=== PATIENT | female | born 1975 | race Caucasian/White ===

== ENCOUNTER 2016-11-06 13:21 | Emergency (ER) | payer SELFPAY ==
[2016-11-06 13:40] VITALS: BP 158/110
[2016-11-06] MEDS ORDERED: OXYCODONE-ACETAMINOPHEN 5-325 MG TABLET PO ONE (13:41)
[2016-11-06] MEDS ORDERED: ONDANSETRON 4 MG TAB.RAPDIS PO ONE (13:41)
--- NOTE | 2016-11-06 13:42 | ER Document Report ---
ED Medical Screen (RME) - General Stated Complaint: FLANK PAIN Time seen by provider: 13:38 Notes: Patient complains of left flank pain that radiates around to abdomen. Patient patient has a history of kidney stones. Has vomited 6 times. Symptoms started yesterday. I have greeted and performed a rapid initial assessment of this patient. A comprehensive ED assessment and evaluation of the patient, analysis of test results and completion of the medical decision making process will be conducted by additional ED providers. TRAVEL OUTSIDE OF THE [place] IN LAST 30 DAYS: No - Related Data Allergies/Adverse Reactions: Penicillins Allergy (Severe, Verified 11/06/16 13:36) Anaphylaxis tramadol [Tramadol] Allergy (Verified 11/06/16 13:36) Past Medical History - Past Medical History Cardiac Medical History: Reports: Hx Hypertension Denies: Hx Coronary Artery Disease, Hx Heart Attack Pulmonary Medical History: Reports: Hx Bronchitis Denies: Hx Asthma, Hx COPD, Hx Pneumonia Neurological Medical History: Denies: Hx Cerebrovascular Accident, Hx Seizures Renal/ Medical History: Reports: Hx Kidney Stones Musculoskeltal Medical History: Denies Hx Arthritis Past Surgical History: Reports: Hx Cholecystectomy, Hx Hysterectomy, Hx Mastectomy - partial hysterectomy, Hx Orthopedic Surgery - TMJ - Immunizations Immunizations up to date: Yes Hx Diphtheria, Pertussis, Tetanus Vaccination: Yes
[2016-11-06 14:07] LABS: APPEARANCE,URINE CLEAR; BILIRUBIN,URINE NEGATIVE (NEGATIVE); GLUCOSE, URINE NEGATIVE (NEGATIVE); KETONES,URINE NEGATIVE (NEGATIVE); LEUKOCYTE ESTERASE,URINE NEGATIVE (NEGATIVE); NITRITE,URINE NEGATIVE (NEGATIVE); PROTEIN,URINE NEGATIVE (NEGATIVE); UROBILINOGEN,URINE NEGATIVE mg/dL (<2.0)
--- NOTE | 2016-11-06 14:48 | ER Document Report ---
ED GI/ - General Chief Complaint: Flank Pain Stated Complaint: FLANK PAIN Notes: 41 yo female with hx/o HTN and kidney stones presents with left flank pain radiating to LLQ. pain started acutely last pm. feels familar to stones. + hematuria. + n/v. no fever TRAVEL OUTSIDE OF THE [place] IN LAST 30 DAYS: No - HPI Patient complains to provider of: Flank pain Onset: Yesterday Timing/Duration: Sudden Quality of pain: Sharp Pain Level: 4 Location: LLQ, Left flank Adult Front & Back Diagram: 1 - pain 2 - pain Associated symptoms: Hematuria, Nausea, Vomiting Exacerbated by: Denies Relieved by: Denies - Related Data Allergies/Adverse Reactions: Penicillins Allergy (Severe, Verified 11/06/16 13:36) Anaphylaxis tramadol [Tramadol] Allergy (Verified 11/06/16 13:36) Past Medical History - General Information source: Patient - Social History Smoking Status: Current Every Day Smoker Chew tobacco use (# tins/day): No Frequency of alcohol use: None Drug Abuse: None Lives with: Family Family History: Reviewed & Not Pertinent Patient has suicidal ideation: No Patient has homicidal ideation: No - Past Medical History Cardiac Medical History: Reports: Hx Hypertension Denies: Hx Coronary Artery Disease, Hx Heart Attack Pulmonary Medical History: Reports: Hx Bronchitis Denies: Hx Asthma, Hx COPD, Hx Pneumonia Neurological Medical History: Denies: Hx Cerebrovascular Accident, Hx Seizures Renal/ Medical History: Reports: Hx Kidney Stones. Denies: Hx Peritoneal Dialysis Musculoskeltal Medical History: Denies Hx Arthritis Past Surgical History: Reports: Hx Cholecystectomy, Hx Hysterectomy, Hx Mastectomy - partial hysterectomy, Hx Orthopedic Surgery - TMJ - Immunizations Immunizations up to date: Yes Hx Diphtheria, Pertussis, Tetanus Vaccination: Yes Hx Pneumococcal Vaccination: 10/04/14 Review of Systems - Review of Systems Constitutional: No symptoms reported EENT: No symptoms reported Cardiovascular: No symptoms reported Respiratory: No symptoms reported Gastrointestinal: See HPI Genitourinary: No symptoms reported Female Genitourinary: No symptoms reported Musculoskeletal: No symptoms reported Skin: No symptoms reported Hematologic/Lymphatic: No symptoms reported Neurological/Psychological: No symptoms reported -: Yes All other systems reviewed and negative Physical Exam - Vital signs Vitals: Temp Pulse Resp BP Pulse Ox 98.0 F 101 H 16 158/110 H 97 11/06/16 13:37 11/06/16 13:37 11/06/16 13:37 11/06/16 13:37 11/06/16 13:37 Interpretation: Hypertensive - General General appearance: Appears well, Alert In distress: Mild - HEENT Head: Normocephalic, Atraumatic Eyes: Normal Pupils: PERRL - Respiratory Respiratory status: No respiratory distress Chest status: Nontender Breath sounds: Normal Chest palpation: Normal - Cardiovascular Rhythm: Regular Heart sounds: Normal auscultation Murmur: No - Abdominal Inspection: Normal Distension: No distension Bowel sounds: Normal Tenderness: Tender - LLQ Organomegaly: No organomegaly - Back Back: Normal, CVA tenderness - left - Extremities General upper extremity: Normal inspection, Nontender, Normal color, Normal ROM , Normal temperature General lower extremity: Normal inspection, Nontender, Normal color, Normal ROM , Normal temperature, Normal weight bearing. No: Yoel's sign - Neurological Neuro grossly intact: Yes Cognition: Normal Orientation: AAOx4 [place] Coma Scale Eye Opening: Spontaneous [place] Coma Scale Verbal: Oriented [place] Coma Scale Motor: Obeys Commands Diane Coma Scale Total: 15 Speech: Normal Motor strength normal: LUE, RUE, LLE, RLE Sensory: Normal - Psychological Associated symptoms: Normal affect, Normal mood - Skin Skin Temperature: Warm Skin Moisture: Dry Skin Color: Normal Course - Re-evaluation Re-evalutation: 11/06/16 14:50 H&P c/w kidney stone. pt reports symptoms are c/w with her last stone which was about 6 mos ago. Pt has been able to pass all previous stones. Pt declines IVF and CT scan at this time. 11/06/16 14:55 blood pressure noted to be elevated. pt reports vomiting shortly after taking meds this morning. 11/06/16 14:59 low suspicion for bowel obstruction, ruptured diverticulitis, incarcerated hernia, ectopic . kidney stone most likely. pt does not want CT or IVF today. Home care, F/U with PCM, ED return precaution discussed with patient who verbalizedmunderstanding and agrees with plan. - Vital Signs Vital signs: Temp Pulse Resp BP Pulse Ox 98.0 F 101 H 16 158/110 H 97 11/06/16 13:37 11/06/16 13:37 11/06/16 13:37 11/06/16 13:37 11/06/16 13:37 - Laboratory Laboratory results interpreted by me: 11/06/16 13:50 Urine Blood MODERATE H Discharge - Discharge Clinical Impression: Flank pain Condition: Stable Disposition: HOME, SELF-CARE Instructions: Flank Pain ([facility]), Oral Narcotic Medication ([facility]), Antinausea Medication ([facility]) Additional Instructions: Your exam is consistent with a kidney stone Take meds as prescribed push fluids Return to ER for any worsening Your blood pressure was noted to by high today This may be due to the pain you are currently in and not being able to tolerate your meds Please keep a blood pressure diary and follow up with your primary care for further evaluation Prescriptions: Ondansetron HCl [Zofran 8 mg Tablet] 8 mg PO Q8HP PRN #20 tablet PRN Reason: Oxycodone HCl/Acetaminophen [Percocet 5-325 mg Tablet] 1 - 2 tab PO ASDIR PRN # 25 tablet PRN Reason: Tamsulosin HCl [Flomax] 0.4 mg PO DAILY #7 cap.er.24h
== END 2016-11-06 15:00 | disposition home or self-care (01) ==
LOC: ER 13:21
DX: R10.9 Unspecified abdominal pain (principal); R10.814 Left lower quadrant abdominal tenderness; I10 Essential (primary) hypertension; R31.9 Hematuria, unspecified; R11.2 Nausea with vomiting, unspecified; F17.200 Nicotine dependence, unspecified, uncomplicated; Z88.5 Allergy status to narcotic agent; Z87.442 Personal history of urinary calculi; Z87.892 Personal history of anaphylaxis; Z88.0 Allergy status to penicillin; Z90.49 Acquired absence of other specified parts of digestive tract; Z90.710 Acquired absence of both cervix and uterus
CPT/HCPCS: 99284; 81001; S0119

== ENCOUNTER 2016-11-14 16:50 | Emergency (ER) | payer SELFPAY ==
--- NOTE | 2016-11-14 17:20 | ER Document Report ---
ED Medical Screen (RME) - General Stated Complaint: FALL/ANKLE, KNEE AND HEAD INJURY Time seen by provider: 17:18 Mode of Arrival: Ambulatory Information source: Patient Notes: 41-year-old female slipped on her back steps injuring left ankle, left knee, right shoulder, and bumped her left forehead. No loss of consciousness. No vomiting.. No neck pain, Slight headache, does not want head, left knee, or right shoulder imaged she does not think they are broken. Tetanus 6 years ago. I have greeted and performed a rapid initial assessment of this patient. A comprehensive ED assessment, evaluation of the patient, analysis of test results , and completion of the medical decision making process will be contacted by additional ED providers. TRAVEL OUTSIDE OF THE [place] IN LAST 30 DAYS: No - Related Data Allergies/Adverse Reactions: Penicillins Allergy (Severe, Verified 11/06/16 13:36) Anaphylaxis tramadol [Tramadol] Allergy (Verified 11/06/16 13:36) Past Medical History - Past Medical History Cardiac Medical History: Reports: Hx Hypertension Denies: Hx Coronary Artery Disease, Hx Heart Attack Pulmonary Medical History: Reports: Hx Bronchitis Denies: Hx Asthma, Hx COPD, Hx Pneumonia Neurological Medical History: Denies: Hx Cerebrovascular Accident, Hx Seizures Renal/ Medical History: Reports: Hx Kidney Stones. Denies: Hx Peritoneal Dialysis Musculoskeltal Medical History: Denies Hx Arthritis Past Surgical History: Reports: Hx Cholecystectomy, Hx Hysterectomy, Hx Mastectomy - partial hysterectomy, Hx Orthopedic Surgery - TMJ - Immunizations Immunizations up to date: Yes Hx Diphtheria, Pertussis, Tetanus Vaccination: Yes Physical Exam - Vital signs Vitals: Temp Pulse Resp BP Pulse Ox 98.4 F 117 H 16 143/88 H 96 11/14/16 17:09 11/14/16 17:09 11/14/16 17:09 11/14/16 17:09 11/14/16 17:09 Course - Vital Signs Vital signs: Temp Pulse Resp BP Pulse Ox 98.4 F 117 H 16 143/88 H 96 11/14/16 17:09 11/14/16 17:09 11/14/16 17:09 11/14/16 17:09 11/14/16 17:09
[2016-11-14] MEDS ORDERED: OXYCODONE-ACETAMINOPHEN 5-325 MG TABLET PO ONE ×2 (17:26→22:49)
[2016-11-14] MEDS ORDERED: ONDANSETRON 4 MG TAB.RAPDIS PO ONE (17:26)
--- NOTE | 2016-11-14 22:48 | ER Document Report ---
ED Fall - General Mode of Arrival: Ambulatory Information source: Patient TRAVEL OUTSIDE OF THE [place] IN LAST 30 DAYS: No - HPI Patient complains to provider of: left ankle pain Associated symptoms: Other - See above <VAISHALI ARCEO - Last Filed: 11/14/16 23:45> <MARY VALERIO - Last Filed: 11/15/16 06:01> - General Chief Complaint: Fall Injury Stated Complaint: FALL/ANKLE, KNEE AND HEAD INJURY Notes: Patient is a 41 year old female, with a past medical history including hypertension, who presents to the emergency department complaining of left ankle pain secondary to a fall this afternoon. Patient reports that she was walking down her porch steps and slipped falling into her yard. Patient also complains of pain in her left knee and right shoulder. Patient states that she can move her left toes normally. Patient denies hitting her head and losing consciousness. (VAISHALI ARCEO) - Related data Allergies/Adverse Reactions: Penicillins Allergy (Severe, Verified 11/06/16 13:36) Anaphylaxis tramadol [Tramadol] Allergy (Verified 11/06/16 13:36) Past Medical History - General Information source: Patient - Social History Smoking Status: Unknown if Ever Smoked Family History: Reviewed & Not Pertinent Patient has suicidal ideation: No Patient has homicidal ideation: No - Past Medical History Cardiac Medical History: Reports: Hx Hypertension Pulmonary Medical History: Reports: Hx Bronchitis Renal/ Medical History: Reports: Hx Kidney Stones Past Surgical History: Reports: Hx Cholecystectomy, Hx Hysterectomy, Hx Mastectomy - partial hysterectomy, Hx Orthopedic Surgery - TMJ - Immunizations Immunizations up to date: Yes Hx Diphtheria, Pertussis, Tetanus Vaccination: Yes Hx Pneumococcal Vaccination: 10/04/14 <VAISHALI ARCEO - Last Filed: 11/14/16 23:45> Review of Systems - Review of Systems Constitutional: No symptoms reported EENT: No symptoms reported Cardiovascular: No symptoms reported Respiratory: No symptoms reported Gastrointestinal: No symptoms reported Genitourinary: No symptoms reported Female Genitourinary: No symptoms reported Musculoskeletal: See HPI, Joint pain - left ankle, knee, and right shoulder Skin: No symptoms reported Hematologic/Lymphatic: No symptoms reported Neurological/Psychological: denies: Lost consciousness -: Yes All other systems reviewed and negative <VAISHALI ARCEO - Last Filed: 11/14/16 23:45> Physical Exam - Vital signs Interpretation: Normal - General General appearance: Appears well, Alert - HEENT Head: Normocephalic, Atraumatic - Respiratory Respiratory status: No respiratory distress Chest status: Nontender Breath sounds: Normal Chest palpation: Normal - Cardiovascular Rhythm: Regular Heart sounds: Normal auscultation Murmur: No - Abdominal Inspection: Normal Distension: No distension Bowel sounds: Normal Tenderness: Nontender Organomegaly: No organomegaly - Back Back: Normal, Nontender - Extremities General lower extremity: Tender - Contusion to left knee and left proximal tibia laterally with tenderness to palption of the inferior to lateral malleolus of the left leg Shoulder: Tender - Right supraspinatus over the AC joint is tender to palpation - Neurological Neuro grossly intact: Yes Cognition: Normal Orientation: AAOx4 [place] Coma Scale Eye Opening: Spontaneous Diane Coma Scale Verbal: Oriented [place] Coma Scale Motor: Obeys Commands [place] Coma Scale Total: 15 Speech: Normal Motor strength normal: LUE, RUE, LLE, RLE Sensory: Normal - Psychological Associated symptoms: Normal affect, Normal mood - Skin Skin Temperature: Warm Skin Moisture: Dry Skin Color: Normal <VAISHALI ARCEO - Last Filed: 11/14/16 23:45> Course <VAISHALI ARCEO - Last Filed: 11/14/16 23:45> - Diagnostic Test Radiology reviewed: Reports reviewed <MARY VALERIO - Last Filed: 11/15/16 06:01> - Re-evaluation Re-evalutation: 11/15/16 Patient with no acute finding on x-ray. No loss of consciousness. Patient is able to ambulate. Patient will be discharged home with Jose wrap and ankle stirrup. Stable for discharge. Return if any worsening or concerning symptoms. (MARY VALERIO) - Vital Signs Vital signs: Temp Pulse Resp BP Pulse Ox 97.9 F 90 18 136/90 H 96 11/14/16 23:06 11/14/16 23:06 11/14/16 23:06 11/14/16 23:06 11/14/16 23:06 (VAISHALI ARCEO) (MARY VALERIO) Procedures - Immobilization Left Ankle Pre-Proc Neuro Vasc Exam: Normal Immobilizer type: Ankle stirrup Performed by: PCT Post-Proc Neuro Vasc Exam: Normal Alignment checked and good: Yes <MARY VALERIO - Last Filed: 11/15/16 06:01> Discharge <VAISHALI ARCEO - Last Filed: 11/14/16 23:45> <MARY VALERIO - Last Filed: 11/15/16 06:01> - Discharge Clinical Impression: Knee contusion Qualifiers: Encounter type: initial encounter Laterality: left Qualified Code(s): S80.02XA - Contusion of left knee, initial encounter Rotator cuff injury Qualifiers: Encounter type: initial encounter Laterality: right Qualified Code(s): S46.001A - Unspecified injury of muscle(s) and tendon(s) of the rotator cuff of right shoulder, initial encounter Ankle sprain Qualifiers: Encounter type: initial encounter Involved ligament of ankle: other ligament Laterality: left Qualified Code(s): S93.492A - Sprain of other ligament of left ankle, initial encounter Condition: Stable Disposition: HOME, SELF-CARE Instructions: Sprained Ankle ([facility]), Oral Narcotic Medication ([facility]), Ice Packs ( [facility]), Splint Precautions ([facility]), Contusion ([facility]) Prescriptions: Oxycodone HCl/Acetaminophen [Percocet 5-325 mg Tablet] 1 - 2 tab PO Q4H PRN #20 tablet PRN Reason: Forms: Return to Work Scribe Attestation: 11/15/16 06:01 I personally performed the services described in the documentation, reviewed and edited the documentation which was dictated to the scribe in my presence, and it accurately records my words and actions. (MARY VALERIO) Scribe Documentation - Scribe Written by Yeseniaibbertha:: dorian Bae, 11/14/16, [id number] acting as scribe for :: Gab <VAISHALI ARCEO - Last Filed: 11/14/16 23:45>
[2016-11-14] MEDS ORDERED: ONDANSETRON ODT 4 MG TAB (6 TAB/DSPK) PO PRN (22:50)
[2016-11-14] MEDS ORDERED: HYDROCODONE/ACETAMINOPHEN 5-325 MG 6 TAB/DSPK PO PRN (22:50)
[2016-11-14 23:13] VITALS: BP 136/90
== END 2016-11-14 23:08 | disposition home or self-care (01) ==
LOC: ER 16:50
PROC: 2W3TX1Z Immobilization of Left Foot using Splint (ICD-10-PCS; principal; 2016-11-14)
DX: S80.02XA Contusion of left knee, initial encounter (principal); S93.492A Sprain of other ligament of left ankle, initial encounter; S46.001A Unspecified injury of muscle(s) and tendon(s) of the rotator cuff of right shoulder, initial encounter; M25.562 Pain in left knee; M25.511 Pain in right shoulder; W19.XXXA Unspecified fall, initial encounter
CPT/HCPCS: 99284; 73610; 73630; 29515; L1902; S0119

== ENCOUNTER 2016-12-22 12:08 | Emergency (ER) | payer SELFPAY ==
--- NOTE | 2016-12-22 12:24 | ER Document Report ---
ED Medical Screen (RME) - General Stated Complaint: URINARY PROBLEM Notes: 41 yo dysuria, hematuria since yesterday. + left flank pain. + hx/o kidney stone and UTI. + nausea, vomited x 1 last PM TRAVEL OUTSIDE OF THE [place] IN LAST 30 DAYS: No - Related Data Allergies/Adverse Reactions: Penicillins Allergy (Severe, Verified 11/06/16 13:36) Anaphylaxis tramadol [Tramadol] Allergy (Verified 11/06/16 13:36) Past Medical History - Past Medical History Cardiac Medical History: Reports: Hx Hypertension Denies: Hx Coronary Artery Disease, Hx Heart Attack Pulmonary Medical History: Reports: Hx Bronchitis Denies: Hx Asthma, Hx COPD, Hx Pneumonia Neurological Medical History: Denies: Hx Cerebrovascular Accident, Hx Seizures Renal/ Medical History: Reports: Hx Kidney Stones. Denies: Hx Peritoneal Dialysis Musculoskeltal Medical History: Denies Hx Arthritis Past Surgical History: Reports: Hx Cholecystectomy, Hx Hysterectomy, Hx Mastectomy - partial hysterectomy, Hx Orthopedic Surgery - TMJ - Immunizations Immunizations up to date: Yes Hx Diphtheria, Pertussis, Tetanus Vaccination: Yes
[2016-12-22 12:26] VITALS: BP 170/96
[2016-12-22 12:58] LABS: APPEARANCE,URINE CLEAR; BILIRUBIN,URINE NEGATIVE (NEGATIVE); GLUCOSE, URINE NEGATIVE (NEGATIVE); KETONES,URINE NEGATIVE (NEGATIVE); LEUKOCYTE ESTERASE,URINE NEGATIVE (NEGATIVE); NITRITE,URINE NEGATIVE (NEGATIVE); PROTEIN,URINE NEGATIVE (NEGATIVE); URINE SPECIFIC GRAVITY 1.004; UROBILINOGEN,URINE NEGATIVE mg/dL (<2.0)
--- NOTE | 2016-12-22 13:56 | ER Document Report ---
HPI - HPI Patient complains to provider of: left flank pain that radiates to her left lower quadrant Onset/Duration: Gradual, Waxing and waning Quality of pain: Achy, Stabbing Pain Level: 4 Context: 41-year-old female complaining of left flank pain which radiates to left lower quadrant it is intermittent and persistent since yesterday at 9:00. She is wondering if it is a kidney stone because she has urinary hesitancy. She has no vaginal discharge or odor. No dysuria. No fever or chills. She's had an ovarian cyst in the past, hysterectomy. Associated Symptoms: None Exacerbated by: Denies Relieved by: Denies Similar symptoms previously: Yes Recently seen / treated by doctor: No - ROS ROS below otherwise negative: Yes Systems Reviewed and Negative: Yes All other systems reviewed and negative - REPRODUCTIVE LMP: hyst Reproductive: DENIES: : - DERM Skin Color: Normal Past Medical History - General Information source: Patient - Social History Smoking Status: Current Every Day Smoker Frequency of alcohol use: None Drug Abuse: None Lives with: Family Family History: Reviewed & Not Pertinent Patient has suicidal ideation: No Patient has homicidal ideation: No - Past Medical History Cardiac Medical History: Reports: Hx Hypertension Pulmonary Medical History: Reports: Hx Bronchitis Renal/ Medical History: Reports: Hx Kidney Stones. Denies: Hx Peritoneal Dialysis Past Surgical History: Reports: Hx Cholecystectomy, Hx Hysterectomy, Hx Orthopedic Surgery - TMJ - Immunizations Immunizations up to date: Yes Hx Diphtheria, Pertussis, Tetanus Vaccination: Yes Hx Pneumococcal Vaccination: 10/04/14 Vertical Provider Document - CONSTITUTIONAL Agree With Documented VS: Yes - INFECTION CONTROL TRAVEL OUTSIDE OF THE [place] IN LAST 30 DAYS: No - HEENT HEENT: Normal ENT Exam, Normocephalic - NECK Neck: Supple. negative: Lymphadenopathy-Right - RESPIRATORY Respiratory: Breath Sounds Normal, No Respiratory Distress O2 Sat by Pulse Oximetry: 99 - CARDIOVASCULAR Cardiovascular: Regular Rate, Regular Rhythm - GI/ABDOMEN Gastrointestinal: Abdomen Soft, Abdomen Non-Tender, No Organomegaly. negative: Abdomen Tender, Abdominal Guarding - BACK Back: Normal Inspection. negative: CVA Tenderness-Right, CVA Tenderness-Left - MUSCULOSKELETAL/EXTREMETIES Musculoskeletal/Extremeties: MAWAI, FROM - NEURO Level of Consciousness: Awake, Alert - DERM Integumentary: Warm, Dry, No Rash Course - Re-evaluation Re-evalutation: 12/22/16 16:36 I had to wake the patient up, the renal ultrasound shows a nonobstructing left upper pole 1 cm kidney stone. Doubt that this flank pain is due to this, urine culture is pending. Will refer to urology, return if worse - Vital Signs Vital signs: Temp Pulse Resp BP Pulse Ox 98.1 F 93 18 170/96 H 99 12/22/16 12:24 12/22/16 12:24 12/22/16 12:24 12/22/16 12:24 12/22/16 12:24 - Laboratory Laboratory results interpreted by me: 12/22/16 12:30 Urine Blood MODERATE H Discharge - Discharge Clinical Impression: non-obst Lt Kidney stone uper pole, Left flank pain Condition: Good Disposition: HOME, SELF-CARE Instructions: Kidney Stone ([facility]), Anti-Inflammatory Medication ([facility]), Acetaminophen, Antinausea Medication ([facility]) Additional Instructions: warm compress see the urulogist to er if worse urine culture is pending Please complete the patient satisfaction survey if you get one, and return it.. If you do not receive a survey, then you can go to the [facility] website, [email or web address] and place your comments about your very good care. Thank you very much. It was a pleasure being your medical provider today. Prescriptions: Promethazine HCl [Phenergan 25 mg Tablet] 25 mg PO Q4HP PRN #30 tablet PRN Reason: Ibuprofen [Motrin 800 mg Tablet] 800 mg PO Q8HP PRN #30 tablet PRN Reason: Referrals: [facility] [Provider Group] - Follow up as needed
[2016-12-22] MEDS ORDERED: IBUPROFEN 800 MG TABLET PO ONE (14:04)
[2016-12-22] MEDS ORDERED: ONDANSETRON 4 MG TAB.RAPDIS PO ONE (14:04)
== END 2016-12-22 17:20 | disposition home or self-care (01) ==
LOC: ER 12:08
DX: R10.9 Unspecified abdominal pain (principal); N20.0 Calculus of kidney; R39.11 Hesitancy of micturition; I10 Essential (primary) hypertension; F17.200 Nicotine dependence, unspecified, uncomplicated; Z90.710 Acquired absence of both cervix and uterus; Z87.42 Personal history of other diseases of the female genital tract; Z90.49 Acquired absence of other specified parts of digestive tract
CPT/HCPCS: 99284; 87086; 81001; 76770; S0119

== ENCOUNTER 2017-01-04 08:09 | Emergency (ER) | payer SELFPAY ==
--- NOTE | 2017-01-04 08:28 | ER Document Report ---
ED General - General Mode of Arrival: Ambulatory Information source: Patient TRAVEL OUTSIDE OF THE [place] IN LAST 30 DAYS: No - HPI Patient complains to provider of: Flank Pain Onset: Other - 12/22/2016 Onset/Duration: Gradual, Persistent - General Chief Complaint: Flank Pain Stated Complaint: VOMITING,LEFT SIDE FLANK PAIN Notes: Patient is a 41-year-old female presenting to the emergency department concerned of flank pain onset, 12/22/2016 when she was first seen here in the emergency department. Patient states that it has improved over the past week, but yesterday the pain returned. Patient has a follow-up appointment with the urologist on Tuesday. Patient cannot remember the name of this urologist. Patient states that she was told that she had an OBSTRUCTIVE kidney stone when she was here on the , but she did not understand that this meant she was not having pain from the kidney stone. (CIARA ESCAMILLA) - Related Data Allergies/Adverse Reactions: Penicillins Allergy (Severe, Verified 01/04/17 08:14) Anaphylaxis tramadol [Tramadol] Allergy (Verified 01/04/17 08:14) Past Medical History - General Information source: Patient - Social History Smoking Status: Unknown if Ever Smoked Family History: Reviewed & Not Pertinent Patient has suicidal ideation: No Patient has homicidal ideation: No - Past Medical History Cardiac Medical History: Reports: Hx Hypertension Denies: Hx Coronary Artery Disease, Hx Heart Attack Pulmonary Medical History: Reports: Hx Bronchitis Denies: Hx Asthma, Hx COPD, Hx Pneumonia Neurological Medical History: Denies: Hx Cerebrovascular Accident, Hx Seizures Renal/ Medical History: Reports: Hx Kidney Stones. Denies: Hx Peritoneal Dialysis Musculoskeltal Medical History: Denies Hx Arthritis Past Surgical History: Reports: Hx Cholecystectomy, Hx Hysterectomy, Hx Mastectomy - partial hysterectomy, Hx Orthopedic Surgery - TMJ - Immunizations Immunizations up to date: Yes Hx Diphtheria, Pertussis, Tetanus Vaccination: Yes Hx Pneumococcal Vaccination: 10/04/14 Review of Systems - Review of Systems Constitutional: No symptoms reported EENT: No symptoms reported Cardiovascular: No symptoms reported Respiratory: No symptoms reported Gastrointestinal: See HPI, Abdominal pain Genitourinary: See HPI, Flank pain Female Genitourinary: No symptoms reported Musculoskeletal: No symptoms reported Skin: No symptoms reported Hematologic/Lymphatic: No symptoms reported Neurological/Psychological: No symptoms reported -: Yes All other systems reviewed and negative Physical Exam - General General appearance: Appears well, Alert - HEENT Head: Normocephalic, Atraumatic Eyes: Normal Pupils: PERRL - Respiratory Respiratory status: No respiratory distress Chest status: Nontender Breath sounds: Normal Chest palpation: Normal - Cardiovascular Rhythm: Regular Heart sounds: Normal auscultation Murmur: No - Abdominal Inspection: Normal Distension: No distension Bowel sounds: Normal Tenderness: Nontender Organomegaly: No organomegaly - Back Back: Tender - Lumbar and paralumbar tenderness to palpation - Extremities General upper extremity: Normal inspection, Nontender General lower extremity: Normal inspection, Nontender - Neurological Neuro grossly intact: Yes Cognition: Normal [place] Coma Scale Eye Opening: Spontaneous [place] Coma Scale Verbal: Oriented [place] Coma Scale Motor: Obeys Commands [place] Coma Scale Total: 15 Speech: Normal - Psychological Associated symptoms: Normal affect, Normal mood - Skin Skin Temperature: Warm Skin Moisture: Dry Skin Color: Normal - Vital signs Vitals: Temp Pulse Resp BP Pulse Ox 98.8 F 98 20 173/96 H 97 01/04/17 08:15 01/04/17 08:15 01/04/17 08:15 01/04/17 08:15 01/04/17 08:15 Course - Re-evaluation Re-evalutation: 01/04/17 08:57 I personally performed the services described in the documentation, reviewed and edited the documentation which was dictated to my scribe in my presence, and it accurately records my words and actions. Patient presents emergency Department with chief complaint of flank pain. Patient was seen and evaluated on 22 December diagnosed with a nonobstructing kidney stone which was not causing any problems she says it was a kidney stone showed her the CT scan her pain is in the back left paralumbar muscular skeletal region not midline she denies fall she said occasionally goes down into her lying on her life hurts. She said she felt couple weeks ago but she injured her shoulder and her ankle not her back. She denies any urinary symptoms loss of bowel or bladder function. On examination she has reproducible tenderness left paralumbar left sciatic with positive unilateral straight leg raise test on the left. Good pulses perfusion no acute vascular deficits. Patient has a follow-up appointment with primary care physician on Tuesday requesting pain medications which we do not use in this situation. Gave her shot of Toradol told her take Motrin and Flexeril follow up on Tuesday for any ongoing concerns and the patient has been seen and evaluated numerous times for similar complaints in the past discussed reasons For ed return sooner (CATHLEEN SANDERSON) - Vital Signs Vital signs: Temp Pulse Resp BP Pulse Ox 98.8 F 88 18 148/90 H 98 01/04/17 09:16 01/04/17 09:16 01/04/17 09:16 01/04/17 09:16 01/04/17 09:16 - Laboratory Laboratory results interpreted by me: 01/04/17 08:41 Urine Blood MODERATE H Discharge - Discharge Clinical Impression: Low back pain Qualifiers: Chronicity: unspecified Back pain laterality: left Sciatica presence: with sciatica Sciatica laterality: sciatica of left side Qualified Code(s): M54.42 - Lumbago with sciatica, left side Condition: Stable Disposition: HOME, SELF-CARE Additional Instructions: Low Back Pain Three out of every four people will have an episode of disabling back pain during their lifetime. Most commonly the pain is due to straining of the muscles and ligaments in the low back. Usual treatment includes: (1) Rest on a firm surface. Avoid lying on your stomach. (2) Ice pack the painful area. After a few days, gentle heat may be used intermittently to relax the area, or ice packs can be continued. (3) Medication may be needed -- muscle relaxers and antiinflammatory medicines are commonly used. (4) As the back improves, exercises are prescribed to strengthen the back and abdominal muscles. Your doctor will advise you on the proper care for your back at each stage in your recovery. You may be better in a few days -- or healing may take several weeks. If new symptoms of a "herniated disc" (radiation of pain, numbness, or tingling down the back of the leg or weakness in the leg) occur, you should be re-examined. Further testing may be necessary. Follow up with your primary care physician in a.m. an appointment with on Tuesday return for increasing worsening or new symptoms Prescriptions: Cyclobenzaprine HCl [Flexeril 10 mg Tablet] 10 mg PO TIDP PRN #8 tablet PRN Reason: Forms: Return to Work Scribe Documentation - Scribe Written by Nick:: Ciara Escamilla 01/04/2017 acting as scribe for :: Gus
[2017-01-04] MEDS ORDERED: KETOROLAC TROMETHAMINE 60 MG/2 ML SDV IM ONE (08:59)
[2017-01-04 09:20] VITALS: BP 148/90
[2017-01-04 09:27] LABS: APPEARANCE,URINE SLIGHTLY-CLOUDY; BILIRUBIN,URINE NEGATIVE (NEGATIVE); GLUCOSE, URINE NEGATIVE (NEGATIVE); KETONES,URINE NEGATIVE (NEGATIVE); LEUKOCYTE ESTERASE,URINE NEGATIVE (NEGATIVE); NITRITE,URINE NEGATIVE (NEGATIVE); PROTEIN,URINE NEGATIVE (NEGATIVE); URINE SPECIFIC GRAVITY 1.013; UROBILINOGEN,URINE NEGATIVE mg/dL (<2.0)
[2017-01-04 09:37] LABS: URINE BARBITURATES SCREEN NEGATIVE; URINE METHADONE SCREEN NEGATIVE; URINE OPIATES LOW UNCONFIRMED POSITIVE; URINE PHENCYCLIDINE SCREEN NEGATIVE
== END 2017-01-04 09:21 | disposition home or self-care (01) ==
LOC: ER 08:09
DX: M54.42 Lumbago with sciatica, left side (principal); R10.9 Unspecified abdominal pain; R11.10 Vomiting, unspecified
CPT/HCPCS: 99284; 96372; 81025; 81001; 80307; J1885

== ENCOUNTER 2017-04-04 09:50 | Emergency (ER) | payer SELFPAY ==
[2017-04-04 10:03] VITALS: BP 144/94
--- NOTE | 2017-04-04 10:35 | ER Document Report ---
HPI - HPI Pain Level: 4 Notes: Patient is a 42-year-old female who presents to the ED complaining of an insect bite to her right abdomen. Patient states she was outside working all day yesterday and noticed a small bite when she was in the shower that did not hurt or itch at the time. Patient also states that there was no discoloration at that time either. Patient states that around 0130 she was woken up with a sharp pain/soreness where the bite is located. Patient had trouble getting back to sleep because of the discomfort. She has not noticed any discharge. Patient states that the wound started turning dark in the center and was also getting red around the wound. Denies any headaches, dizziness, fever, lip/ tongue/throat swelling, dysphagia, cough, wheezing, dyspnea, chest pain, palpitations, abdominal pain, nausea/vomiting/diarrhea, dysuria, joint pains. - ROS Notes: REVIEW OF SYSTEMS: CONSTITUTIONAL : Denies fever, chills, or sweats. Denies recent illness. EENT: Denies eye, ear, throat, or mouth pain or symptoms. Denies nasal or sinus congestion or discharge. Denies throat, tongue, or mouth swelling or difficulty swallowing. CARDIOVASCULAR: Denies chest pain. Denies palpitations or racing or irregular heart beat. Denies ankle edema. RESPIRATORY: Denies cough, cold, or chest congestion. Denies shortness of breath, difficulty breathing, or wheezing. GASTROINTESTINAL: Denies abdominal pain or distention. Denies nausea, vomiting , or diarrhea. Denies blood in vomitus, stools, or per rectum. Denies black, tarry stools. Denies constipation. GENITOURINARY: Denies difficulty urinating, painful urination, burning, frequency, blood in urine, or discharge. MUSCULOSKELETAL: Denies back or neck pain or stiffness. Denies joint pain or swelling. SKIN: see hpi NEUROLOGICAL: denies CROW, numbness/tingling ALL OTHER SYSTEMS REVIEWED AND NEGATIVE. Dictation was performed using [employer] voice recognition software - CARDIOVASCULAR Cardiovascular: DENIES: Chest pain - REPRODUCTIVE Reproductive: DENIES: : - DERM Skin Color: Normal Past Medical History - Social History Smoking Status: Current Every Day Smoker Chew tobacco use (# tins/day): No Frequency of alcohol use: Rare Drug Abuse: None Family History: Reviewed & Not Pertinent Patient has suicidal ideation: No Patient has homicidal ideation: No - Past Medical History Cardiac Medical History: Reports: Hx Hypertension Denies: Hx Coronary Artery Disease, Hx Heart Attack Pulmonary Medical History: Reports: Hx Bronchitis Denies: Hx Asthma, Hx COPD, Hx Pneumonia Neurological Medical History: Denies: Hx Cerebrovascular Accident, Hx Seizures Renal/ Medical History: Reports: Hx Kidney Stones. Denies: Hx Peritoneal Dialysis Musculoskeltal Medical History: Denies Hx Arthritis Past Surgical History: Reports: Hx Cholecystectomy, Hx Hysterectomy, Hx Mastectomy - partial hysterectomy, Hx Orthopedic Surgery - TMJ - Immunizations Immunizations up to date: Yes Hx Diphtheria, Pertussis, Tetanus Vaccination: Yes Hx Pneumococcal Vaccination: 10/04/14 Vertical Provider Document - CONSTITUTIONAL Notes: PHYSICAL EXAMINATION: GENERAL: Well-appearing, well-nourished and in no acute distress. HEAD: Atraumatic, normocephalic. EYES: Pupils equal round and reactive to light, extraocular movements intact, sclera anicteric, conjunctiva are normal. ENT: EAC clear b/l. TM's intact b/l without erythema, fluid, or perforation. Nares patent and without discharge. oropharynx clear without exudates. No tonsilar hypertrophy or erythema. Moist mucous membranes. No sinus tenderness. No angioedema appreciated. NECK: Normal range of motion, supple without lymphadenopathy. No rigidity. LUNGS: Breath sounds clear to auscultation bilaterally and equal. No wheezes rales or rhonchi. HEART: Regular rate and rhythm without murmurs, rubs, gallops. ABDOMEN: Soft, nontender, nondistended abdomen. No guarding, no rebound. No masses appreciated. Normal bowel sounds present. No CVA tenderness bilaterally. Musculoskeletal: FROM to passive/active. Strength 5+/5. Extremities: No cyanosis, clubbing, or edema b/l. Peripheral pulses 2+. Capillary refill less than 3 seconds. NEUROLOGICAL: Normal sensory, motor exams PSYCH: Normal mood, normal affect. SKIN: + approx .75cm-1cm erythemic area with a dark, ?necrotic center, with a slight macular rash surrounding the area approx 3"x4" area. Patient is mildly tender to palp to the site and the surrounding erythemic area. No induration noted. No discharge or abscess formation at this time. - INFECTION CONTROL TRAVEL OUTSIDE OF THE [place] IN LAST 30 DAYS: No - RESPIRATORY O2 Sat by Pulse Oximetry: 98 Course - Re-evaluation Re-evalutation: 04/04/17 10:[address] Olivia: Patient is an afebrile, well-hydrated, 42-year-old female who presents with suspected insect bite to her right abdomen. Vitals are stable. It appears as though there is a small area of necrotic tissue. I will cover her with Bactrim DS 1 p.o. twice daily 10 days and I will also give her a prescription for Percocet to help with pain. States she has tolerated his pain medication before in the past despite being allergic to tramadol. Conservative measures otherwise for symptoms. Continue to monitor the area closely. Recheck with a PCM in 2-3 days. Return to ED with any worsening/concerning symptoms otherwise as reviewed. Patient agreement. - Vital Signs Vital signs: Temp Pulse Resp BP Pulse Ox 98.3 F 106 H 18 144/94 H 98 04/04/17 10:00 04/04/17 10:00 04/04/17 10:00 04/04/17 10:00 04/04/17 10:00 Discharge - Discharge Clinical Impression: Insect bite Qualifiers: Encounter type: initial encounter Qualified Code(s): W57.XXXA - Bitten or stung by nonvenomous insect and other nonvenomous arthropods, initial encounter Condition: Stable Disposition: HOME, SELF-CARE Additional Instructions: Keep the skin clean Use bacitracin for the next couple of days Tylenol/ibuprofen as needed Ice may help Take antibiotic as directed for full dose Monitor for any worsening signs of infection and return to the ED with any symptoms: worsening redness, red streaks, abscess, purulent discharge, fever Recheck with your PCM in 2-3 days Return to the ED with any worsening symptoms and/or development of fever, headache, chest pain, palpitations, syncope, shortness of breath, trouble breathing, abdominal pain, n/v/d, blood in stool/urine, urinary retention, muscle weakness/paralysis, or other worsening symptoms that are concerning to you. Insect Bites You have been bitten by an insect. These bites can cause two types of swelling: an initial swelling due to insect saliva or injected poison, and a late reaction due to your body's allergic reaction. This initial local reaction may be uncomfortable but is not dangerous. Often there's an itchy "hive" at the bite location. This is treated with antihistamines, cold compresses, and resting the affected body part. The later reaction often develops about the second day. The entire area becomes very swollen, red, itchy, and tender. This is an allergic reaction. Your body is attacking the leftover insect saliva or venom. This type of allergy is unpleasant, but not dangerous. We treat this swelling with cortisone -type medicine. Sometimes we use antibiotics if we're worried about infection. Antihistamines help with the itch. If you develop a fever, chills, a red streak, or swollen glands in the area of the bite, infection may be starting. Return at once. Prescriptions: Oxycodone HCl [Oxycodone HCl 10 MG Tablet] 1 - 2 tab PO Q6H PRN #15 tablet PRN Reason: PAIN Sulfamethoxazole/Trimethoprim [Bactrim Ds Tablet] 1 each PO BID #14 tablet Referrals: DERMATOLOGY [Provider Group] - Follow up as needed
== END 2017-04-04 10:55 | disposition home or self-care (01) ==
LOC: ER 09:50
DX: S30.861A Insect bite (nonvenomous) of abdominal wall, initial encounter (principal); W57.XXXA Bitten or stung by nonvenomous insect and other nonvenomous arthropods, initial encounter; F17.200 Nicotine dependence, unspecified, uncomplicated; I10 Essential (primary) hypertension; Z87.442 Personal history of urinary calculi; Z90.49 Acquired absence of other specified parts of digestive tract; Z90.710 Acquired absence of both cervix and uterus
CPT/HCPCS: 99281

== ENCOUNTER 2017-06-01 12:02 | Emergency (ER) | payer SELFPAY ==
[2017-06-01 12:08] VITALS: BP 149/88
--- NOTE | 2017-06-01 12:24 | ER Document Report ---
HPI - HPI Pain Level: 4 Notes: Patient is a 42-year-old female who presents the ED complaining of a spider bite to her right anterior thigh. Patient believes that it was how spider. Patient states that this occurred yesterday and she noticed a little dark center and some clear discharge today. Patient states that she has been having some pain and discomfort to that thigh, but is still ambulating without difficulties. She has not noticed any red streaks or purulent discharge. I have previously seen this patient for another insect bite in April, and she states that the Bactrim that was given during that time helped with her previous insect bite and would like that again. Denies any headache, fever, neck pain, angioedema, URI, sore throat, chest pain, palpitations, syncope, cough, shortness of breath, wheeze, dyspnea, abdominal pain, nausea/vomiting/ diarrhea, urinary retention, dysuria, hematuria, numbness/tingling, muscle paralysis/weakness. Patient admits to smoking but denies any other illicit drug use. Patient is allergic to penicillins and tramadol. - ROS Notes: REVIEW OF SYSTEMS: CONSTITUTIONAL : Denies fever, chills, or sweats. Denies recent illness. EENT: Denies eye, ear, throat, or mouth pain or symptoms. Denies nasal or sinus congestion or discharge. Denies throat, tongue, or mouth swelling or difficulty swallowing. CARDIOVASCULAR: Denies chest pain. Denies palpitations or racing or irregular heart beat. Denies ankle edema. RESPIRATORY: Denies cough, cold, or chest congestion. Denies shortness of breath, difficulty breathing, or wheezing. GASTROINTESTINAL: Denies abdominal pain or distention. Denies nausea, vomiting , or diarrhea. Denies blood in vomitus, stools, or per rectum. Denies black, tarry stools. Denies constipation. GENITOURINARY: Denies difficulty urinating, painful urination, burning, frequency, blood in urine, or discharge. MUSCULOSKELETAL: see hpi SKIN: see hpi NEUROLOGICAL: Denies confusion or altered mental status. Denies passing out or loss of consciousness. Denies dizziness or lightheadedness. Denies headache. Denies weakness or paralysis or loss of use of either side. Denies problems with gait or speech. Denies sensory loss, numbness, or tingling. ALL OTHER SYSTEMS REVIEWED AND NEGATIVE. Dictation was performed using Dragon voice recognition software - REPRODUCTIVE Reproductive: DENIES: : - DERM Skin Color: Normal, [place] Past Medical History - Social History Smoking Status: Current Every Day Smoker Family History: Reviewed & Not Pertinent Patient has suicidal ideation: No Patient has homicidal ideation: No - Past Medical History Cardiac Medical History: Reports: Hx Hypertension Denies: Hx Coronary Artery Disease, Hx Heart Attack Pulmonary Medical History: Reports: Hx Bronchitis Denies: Hx Asthma, Hx COPD, Hx Pneumonia Neurological Medical History: Denies: Hx Cerebrovascular Accident, Hx Seizures Renal/ Medical History: Reports: Hx Kidney Stones. Denies: Hx Peritoneal Dialysis Musculoskeltal Medical History: Denies Hx Arthritis Past Surgical History: Reports: Hx Cholecystectomy, Hx Hysterectomy, Hx Mastectomy - partial hysterectomy, Hx Orthopedic Surgery - TMJ - Immunizations Immunizations up to date: Yes Hx Diphtheria, Pertussis, Tetanus Vaccination: Yes Hx Pneumococcal Vaccination: 10/04/14 Vertical Provider Document - CONSTITUTIONAL Agree With Documented VS: Yes Notes: PHYSICAL EXAMINATION: GENERAL: Well-appearing, well-nourished and in no acute distress. LUNGS: Breath sounds clear to auscultation bilaterally and equal. No wheezes rales or rhonchi. HEART: Regular rate and rhythm without murmurs, rubs, gallops. Musculoskeletal: FROM to passive/active. Strength 5+/5. Extremities: No cyanosis, clubbing, or edema b/l. Peripheral pulses 2+. Capillary refill less than 3 seconds. NEUROLOGICAL: Cranial nerves grossly intact. Normal speech, normal gait. Normal sensory, motor exams PSYCH: Normal mood, normal affect. SKIN: Rt anterior thigh: + mild erythemic area with very small necrotic center , no fang diop. No expanding erythema, streaks, abscess, or purulent discharge. No induration. + mild tenderness to palp. - INFECTION CONTROL TRAVEL OUTSIDE OF THE [place] IN LAST 30 DAYS: No - RESPIRATORY O2 Sat by Pulse Oximetry: 99 Course - Re-evaluation Re-evalutation: 06/01/17 12:28 Patient is an afebrile, well-hydrated, 42-year-old female who presents the ED status post insect/spider bite to the right anterior thigh. Vitals are stable. PE otherwise unremarkable at this time. Low suspicion for any necrotizing fasciitis, septic joint, sepsis, meningitis, compartment syndrome, snakebite, or other systemic emergent conditions at this time. Patient is aware that her condition can change from initial presentation and she needs to monitor symptoms closely and seek medical attention if any acute changes. I will send her home with a prescription for Bactrim to take as directed. Wound instructions reviewed using bacitracin, Epsom salts soaks, and [id number] meds as needed. Recheck with your PCM this week. Return to the ED with any worsening/concerning symptoms otherwise as reviewed in discharge. Patient is in agreement. - Vital Signs Vital signs: Temp Pulse Resp BP Pulse Ox 98.1 F 114 H 16 149/88 H 99 06/01/17 12:05 06/01/17 12:05 06/01/17 12:05 06/01/17 12:05 06/01/17 12:05 Discharge - Discharge Clinical Impression: Insect bite Qualifiers: Encounter type: initial encounter Qualified Code(s): W57.XXXA - Bitten or stung by nonvenomous insect and other nonvenomous arthropods, initial encounter Condition: Stable Disposition: HOME, SELF-CARE Instructions: Insect Bites ([facility]), Bactroban Ointment ([facility]), Follow-Up Care ([facility] ) Additional Instructions: Keep the skin clean and wash with soap and water take antibiotic as directed Tylenol/ibuprofen as needed Epson salt soaks may help Warm compress/cool compresses needed Apply bacitracin as directed Recheck with your PCM this week Return to the ED with any worsening symptoms and/or development of fever, headache, chest pain, palpitations, syncope, shortness of breath, trouble breathing, abdominal pain, n/v/d, blood in stool/urine, muscle weakness/ paralysis, numbness/tingling, abscess, red streaks, purulent discharge, or other worsening symptoms that are concerning to you. Prescriptions: Sulfamethoxazole/Trimethoprim [Bactrim Ds Tablet] 1 each PO BID #20 tablet Forms: Elevated Blood Pressure, Smoking Cessation Education Referrals: [facility] [Provider Group] - Follow up as needed [facility] [Provider Group] - Follow up as needed
== END 2017-06-01 12:39 | disposition home or self-care (01) ==
LOC: ER 12:02
DX: S70.361A Insect bite (nonvenomous), right thigh, initial encounter (principal); W57.XXXA Bitten or stung by nonvenomous insect and other nonvenomous arthropods, initial encounter; F17.200 Nicotine dependence, unspecified, uncomplicated; I10 Essential (primary) hypertension; Z87.442 Personal history of urinary calculi; Z90.49 Acquired absence of other specified parts of digestive tract; Z90.710 Acquired absence of both cervix and uterus
CPT/HCPCS: 99281

== ENCOUNTER 2017-06-04 04:51 | Emergency (ER) | payer SELFPAY ==
--- NOTE | 2017-06-04 05:37 | ER Document Report ---
HPI - HPI Pain Level: 4 Notes: Patient is a 42-year-old female who presents the ED complaining of left hip, buttock, low back pain status post fall down a few stairs yesterday at 1630. Patient states that the pain radiates down her leg and up into her back when she tries to move or walk. Patient has been ambulatory, but is limping. She has been using [id number] meds with minimal relief. Patient states that she has a large bruise to her left buttock. Pain is described as a throb and occasional sharp pain. Patient denies any head injury, loss of consciousness, nausea/vomiting. Denies any headache, fever, neck pain, changes in vision/ speech/mentation/hearing, URI, sore throat, chest pain, palpitations, syncope, cough, shortness of breath, wheeze, dyspnea, abdominal pain, nausea/vomiting/ diarrhea, urinary retention, dysuria, hematuria, loss of control of bowel or bladder, numbness/tingling, saddle anesthesia, muscle paralysis/weakness, or rash. - ROS Notes: REVIEW OF SYSTEMS: CONSTITUTIONAL : Denies fever, chills, or sweats. Denies recent illness. EENT: Denies eye, ear, throat, or mouth pain or symptoms. Denies nasal or sinus congestion or discharge. Denies throat, tongue, or mouth swelling or difficulty swallowing. CARDIOVASCULAR: Denies chest pain. Denies palpitations or racing or irregular heart beat. Denies ankle edema. RESPIRATORY: Denies cough, cold, or chest congestion. Denies shortness of breath, difficulty breathing, or wheezing. GASTROINTESTINAL: Denies abdominal pain or distention. Denies nausea, vomiting , or diarrhea. Denies blood in vomitus, stools, or per rectum. Denies black, tarry stools. Denies constipation. GENITOURINARY: Denies difficulty urinating, painful urination, burning, frequency, blood in urine, or discharge. MUSCULOSKELETAL: see hpi SKIN: see hpi NEUROLOGICAL: Denies confusion or altered mental status. Denies passing out or loss of consciousness. Denies dizziness or lightheadedness. Denies headache. Denies weakness or paralysis or loss of use of either side. Denies problems with gait or speech. Denies sensory loss, numbness, or tingling. ALL OTHER SYSTEMS REVIEWED AND NEGATIVE. Dictation was performed using Dragon voice recognition software - REPRODUCTIVE Reproductive: DENIES: : - DERM Skin Color: Normal, [place] <YOLANDA ROUSE - Last Filed: 06/04/17 06:48> Past Medical History - Social History Smoking Status: Unknown if Ever Smoked Family History: Reviewed & Not Pertinent - Past Medical History Cardiac Medical History: Reports: Hx Hypertension Denies: Hx Coronary Artery Disease, Hx Heart Attack Pulmonary Medical History: Reports: Hx Bronchitis Denies: Hx Asthma, Hx COPD, Hx Pneumonia Neurological Medical History: Denies: Hx Cerebrovascular Accident, Hx Seizures Renal/ Medical History: Reports: Hx Kidney Stones. Denies: Hx Peritoneal Dialysis Musculoskeltal Medical History: Denies Hx Arthritis Past Surgical History: Reports: Hx Cholecystectomy, Hx Hysterectomy, Hx Mastectomy - partial hysterectomy, Hx Orthopedic Surgery - TMJ - Immunizations Immunizations up to date: Yes Hx Diphtheria, Pertussis, Tetanus Vaccination: Yes Hx Pneumococcal Vaccination: 10/04/14 <BORIS ROUSEN - Last Filed: 06/04/17 06:48> Vertical Provider Document - CONSTITUTIONAL Agree With Documented VS: Yes Notes: PHYSICAL EXAMINATION: Nurse Polanco in exam with me: GENERAL: Well-appearing, well-nourished and in no acute distress. A&Ox3 HEAD: Atraumatic, normocephalic. Non-tender. No aly sign EYES: Pupils equal round and reactive to light, extraocular movements intact, sclera anicteric, conjunctiva are normal. No raccoon eyes/entrapment NECK: Normal range of motion, supple without lymphadenopathy. No rigidity. No midline tenderness. Spurling negative. Chest: No flail chest. equal rise/fall. Non-tender LUNGS: Breath sounds clear to auscultation bilaterally and equal. No wheezes rales or rhonchi. HEART: Regular rate and rhythm without murmurs, rubs, gallops. ABDOMEN: Soft, nontender, nondistended abdomen. No guarding, no rebound. No masses appreciated. Normal bowel sounds present. No CVA tenderness bilaterally. Musculoskeletal: LE b/l: FROM to passive/active. Strength 5+/5. No deficits noted. No bony tenderness of extremities. Lt hip: + [id number] ecchymosis to the left buttocks and a small area on the left pelvis/hip. + tenderness to palp of the hip and posterior pelvis/ischium. Pt appears uncomfortable and is laying on her right side Back: FROM to passive/active. Strength 5+/5. No vertebral point tenderness, stepoffs, or deformities. No other bony tenderness or ecchymosis. SLR negative b/l. Extremities: No cyanosis, clubbing, or edema b/l. Peripheral pulses 2+. Capillary refill less than 2 seconds. NEUROLOGICAL: MMSE intact. Cranial nerves grossly intact. Normal speech, ataxic gait. Normal sensory, motor exams. PSYCH: Normal mood, normal affect. SKIN: Warm, Dry, normal turgor, no rashes or lesions noted. - INFECTION CONTROL TRAVEL OUTSIDE OF THE [place] IN LAST 30 DAYS: No - RESPIRATORY O2 Sat by Pulse Oximetry: 100 <YOLANDA ROUSE - Last Filed: 06/04/17 06:48> Course - Re-evaluation Re-evalutation: 06/04/17 06:48 Patient is an afebrile, well-hydrated, 42-year-old female who presents the ED with a left hip and posterior pelvis contusion status post fall. Vitals are stable. PE otherwise unremarkable for any focal neurological deficits. Patient is able to ambulate with an ataxic gait. X-ray of the pelvis and left hip did not show any acute fracture or dislocation. 5 mg of oxycodone was given for pain management today. Crutches were provided for the patient to utilize as needed. Low suspicion for any meningitis, fracture, expanding/ ruptured AAA, cauda equina syndrome, epidural mass lesion/abscess, herniated disc causing severe spinal stenosis, neurovascular compromise, tendon rupture, or other urgent/emergent systemic infection at this time. Patient is aware that her condition can change from initial presentation and that she needs monitor symptoms closely for any acute changes. Conservative measures otherwise for symptoms. Recheck with her PCM next week. Consider consult with orthopedics. Return to the ED with any worsening/concerning symptoms otherwise as reviewed in discharge. Patient is in agreement. - Vital Signs Vital signs: Temp Pulse Resp BP Pulse Ox 98.7 F 117 H 20 152/109 H 100 06/04/17 05:00 06/04/17 05:00 06/04/17 05:00 06/04/17 05:00 06/04/17 05:00 <YOLANDA ROUSE - Last Filed: 06/04/17 06:48> - Vital Signs Vital signs: Temp Pulse Resp BP Pulse Ox 98.1 F 92 18 122/80 98 06/04/17 07:13 06/04/17 07:13 06/04/17 07:13 06/04/17 07:13 06/04/17 07:13 <CATHLEEN SANDERSON - Last Filed: 06/05/17 03:43> Discharge <PADMAYOLANDA - Last Filed: 06/04/17 06:48> <CATHLEEN SANDERSON - Last Filed: 06/05/17 03:43> - Discharge Clinical Impression: Contusion of hip, right Qualifiers: Encounter type: initial encounter Qualified Code(s): S70.01XA - Contusion of right hip, initial encounter Condition: Stable Disposition: HOME, SELF-CARE Instructions: Contusion ([facility]), Use of Crutches ([facility]), Ice & Elevation ([facility]), Warm Packs ([facility]) Additional Instructions: Rest, Ice, Compression, Elevation Use crutches as directed Tylenol/ibuprofen as needed Light stretches daily Strength exercises as able Moist heat and massage may help F/u with your PCP in 2-3 days for a recheck Consider consult(s) with Orthopedics/physical therapy for ongoing/worsening symptoms Return to the ED with any worsening symptoms and/or development of fever, headache, chest pain, palpitations, syncope, shortness of breath, trouble breathing, abdominal pain, n/v/d, muscle weakness/paralysis, numbness/tingling, swelling, redness, or other worsening symptoms that are concerning to you. Prescriptions: Oxycodone HCl [Oxycontin Ir 5 Mg Tablet] 1 tab PO TID PRN #9 tablet PRN Reason: For Pain Forms: Elevated Blood Pressure Referrals: [facility] [Provider Group] - Follow up as needed
[2017-06-04] MEDS ORDERED: OXYCODONE HCL IR 5 MG TABLET PO ONE (05:46)
--- NOTE | 2017-06-04 06:46 | RADIOLOGY REPORT (SQ) ---
EXAM DESCRIPTION: HIP LEFT AP/LATERAL COMPLETED DATE/TIME: 06/04/2017 6:25 am REASON FOR STUDY: fall, bruising, pain posterior left hip. COMPARISON: CT abdomen and pelvis 02/22/2016 NUMBER OF VIEWS: Two views. TECHNIQUE: AP pelvis and additional frog-leg view of the left hip. LIMITATIONS: Patient positioning. FINDINGS: The superior aspect of the pelvis is excluded from the field the view. No acute fracture at the visualized pelvis. Sclerotic areas at the left iliac wing, may represent bone islands. The bilateral hip joints are maintained. No radiographic evidence for acute fracture or dislocation. The soft tissues are unremarkable. No radiopaque foreign body. IMPRESSION: No radiographic evidence of acute injury. TECHNICAL DOCUMENTATION: JOB ID: [id number] 2010 [email or web address]- All Rights Reserved
[2017-06-04 07:13] VITALS: BP 122/80
== END 2017-06-04 07:15 | disposition home or self-care (01) ==
LOC: ER 04:51
DX: S70.01XA Contusion of right hip, initial encounter (principal); M25.552 Pain in left hip; M54.5 Low back pain; W10.9XXA Fall (on) (from) unspecified stairs and steps, initial encounter
CPT/HCPCS: 99283

== ENCOUNTER 2018-11-01 13:00 | Emergency (ER) | payer OTHER ==
[2018-11-01] MEDS ORDERED: TETRACAINE HCL 0.5% OPH SOLN 4 ML OS ONE (13:03)
[2018-11-01 13:07] VITALS: BP 180/117
--- NOTE | 2018-11-01 13:34 | ER Document Report ---
HPI - HPI Time Seen by Provider: 11/01/18 13:16 Pain Level: 2 Notes: Patient is a 43-year-old female no significant past medical history who presents to the emergency department complaining of left eye irritation and burning status post injury while at work. Patient states that boiling water splashed up into her left eye. Patient states that she merely put her hand up to her eye thereafter, but does not believe any foreign body came into contact with her eye otherwise. Patient states that she does have blurriness and irritation to the left eye. She does not wear contact lenses. Pain does not radiate. No other concerns or complaints. Denies any headache, fever, neck pain, URI, sore throat, chest pain, palpitations, syncope, cough, shortness of breath, wheeze, dyspnea, abdominal pain, nausea/vomiting/diarrhea, urinary retention, dysuria, hematuria, or rash. - ROS Systems Reviewed and Negative: Yes All other systems reviewed and negative - EENT EENT: REPORTS: Eye problems - L eye - REPRODUCTIVE Reproductive: DENIES: : Past Medical History - Social History Smoking Status: Current Every Day Smoker Family History: Reviewed & Not Pertinent Patient has suicidal ideation: No Patient has homicidal ideation: No - Past Medical History Cardiac Medical History: Reports: Hx Hypertension Denies: Hx Coronary Artery Disease, Hx Heart Attack Pulmonary Medical History: Reports: Hx Bronchitis Denies: Hx Asthma, Hx COPD, Hx Pneumonia Neurological Medical History: Denies: Hx Cerebrovascular Accident, Hx Seizures Renal/ Medical History: Reports: Hx Kidney Stones. Denies: Hx Peritoneal Dialysis Musculoskeletal Medical History: Denies Hx Arthritis Past Surgical History: Reports: Hx Cholecystectomy, Hx Hysterectomy, Hx Mastectomy - partial hysterectomy, Hx Orthopedic Surgery - TMJ - Immunizations Immunizations up to date: Yes Hx Diphtheria, Pertussis, Tetanus Vaccination: Yes Hx Pneumococcal Vaccination: 10/04/14 Vertical Provider Document - CONSTITUTIONAL Agree With Documented VS: Yes Notes: PHYSICAL EXAMINATION: GENERAL: Well-appearing, well-nourished and in no acute distress. A&Ox4 HEAD: Atraumatic, normocephalic. EYES: Pupils equal round and reactive to light, extraocular movements intact, sclera anicteric, conjunctiva w/o discharge or matting. Non-tender to palp of the globe and eye itself. No surrounding erythema or swelling noted. Wood's lamp/flourescein: + small uptake approx 6pm position, possible abrasion. No rust ring. No laceration, ulceration, or rich sign noted. No obvious foreign body appreciated. ENT: EAC clear b/l. TM's intact b/l without erythema, fluid, or perforation. Nares patent and without discharge. oropharynx clear without exudates. No tonsilar hypertrophy or erythema. Moist mucous membranes. No sinus tenderness. Uvula midline. No palatine shift. No airway compromise. No drooling or hoarseness. NECK: Normal range of motion, supple without lymphadenopathy. No rigidity/meningismus. LUNGS: Breath sounds clear to auscultation bilaterally and equal. No wheezes rales or rhonchi. HEART: Regular rate and rhythm without murmurs, rubs, gallops. Musculoskeletal: Ext b/l: FROM to passive/active. Strength 5+/5. Extremities: No cyanosis, clubbing, or edema b/l. Peripheral pulses 2+. Capillary refill less than 3 seconds. NEUROLOGICAL: Cranial nerves grossly intact. Normal speech, normal gait. Normal sensory, motor exams PSYCH: Normal mood, normal affect. SKIN: Warm, Dry, normal turgor, no rashes or lesions noted. - INFECTION CONTROL TRAVEL OUTSIDE OF THE [place] IN LAST 30 DAYS: No Course - Re-evaluation Re-evalutation: 11/01/18 13:31 Patient is an afebrile, well-hydrated [id number] female who presents to the emergency department with a corneal abrasion and left eye pain after boiling water hit her eye. Vitals are acceptable without significant tachycardia, tachypnea, or hypoxia. PE is otherwise unremarkable. See eye exam. Tetracaine did improve her symptoms. I did have Dr. Downey eval the patient as well who is in agreement with disposition and plan. Low suspicion for any retained corneal or lid foreign body, deep space infection including orbital cellulitis/abscess, acute glaucoma, penetrating globe injury, retinal detachment, meningitis, sepsis, fracture, compartment syndrome. I will send home with a prescription for erythromycin ointment to use as directed. Conservative measures otherwise for symptoms with proper handwashing. Recheck with your PCM in 3-5 days. Schedule a f/u with Ophthalmology this week or next week. Return to the ED with any worsening/concerning symptoms otherwise as reviewed in discharge. Patient is in agreement. - Vital Signs Vital signs: Temp Pulse Resp BP Pulse Ox 98.7 F 107 H 20 180/117 H 96 11/01/18 13:05 11/01/18 13:05 11/01/18 13:05 11/01/18 13:05 11/01/18 13:05 Discharge - Discharge Clinical Impression: Left eye pain Condition: Stable Disposition: HOME, SELF-CARE Instructions: Corneal Abrasion ([facility]) Additional Instructions: Keep eyes clean Avoid scratching/touching eyes Wash hands regularly Use eye drops as directed Maintain adequate fluid intake tylenol/ibuprofen as needed over the counter cold medication as needed for symptoms F/u: with your PCM in 3-5 days for a recheck Call ophthalmology today/tomorrow to schedule follow-up appointment Return to the ED with any worsening symptoms and/or development of fever, headache, changes in vision, eye pain, worsening eye redness, redness around the eyes, purulent discharge, sore throat, facial swelling, neck pain/stiffness, chest pain, palpitations, syncope, shortness of breath, trouble breathing, abdominal pain, n/v/d, blood in stool/urine, dysuria, or other worsening symptoms that are concerning to you. Prescriptions: Erythromycin Base [Erythromycin Oph 1 gm Oint Ud] 1 applic OP QID #1 tube Forms: Elevated Blood Pressure Referrals: KASH SOLIS MD [ACTIVE STAFF] - 11/03/18
== END 2018-11-01 13:41 | disposition home or self-care (01) ==
LOC: ER 13:00
DX: H57.12 Ocular pain, left eye (principal); W22.8XXA Striking against or struck by other objects, initial encounter; Y99.0 Civilian activity done for income or pay; Z87.442 Personal history of urinary calculi; I10 Essential (primary) hypertension
CPT/HCPCS: 99283; J3490

== ENCOUNTER 2019-02-11 06:27 | Emergency (ER) | payer SELFPAY ==
[2019-02-11] MEDS ORDERED: MORPHINE SULFATE 10 MG/ML INJ IV ONE ×2 (07:00→08:39)
[2019-02-11] MEDS ORDERED: NORMAL SALINE 1000 ML 1,000 ML IV ONE (07:00)
[2019-02-11] MEDS ORDERED: ONDANSETRON HCL INJ/PF 4 MG/2 ML SDV IV ONE (07:00)
--- NOTE | 2019-02-11 07:09 | ER Document Report ---
ED General - General Chief Complaint: Abdominal Pain Stated Complaint: LEFT LOWER ABDOMINAL PAIN Time Seen by Provider: 02/11/19 06:59 Primary Care Provider: [facility] [Provider Group] - Follow up in 3-5 days [facility] [Provider Group] - Follow up in 3-5 days TRAVEL OUTSIDE OF THE [place] IN LAST 30 DAYS: No - HPI Notes: Patient is a 44-year-old female that presents to the emergency department for chief complaint of left lower quadrant abdominal pain. Patient states the pain is sharp pain started 2 days ago. Yesterday became more severe. It is located in her left lower quadrant and has now started to radiate up into her left upper quadrant. She reports associated nausea with no vomiting. Her last bowel movement was 3 to 4 days ago. She denies history of diverticulitis in the past but does have a history of constipation and usually goes a few days in between bowel movements. She denies any blood in her stool previously. Patient denies associated known fevers but does state occasionally she will have sweats and chills. She has not taken any medication at home for her pain. Patient also states that she has been out of her blood pressure medication for the last few weeks and admits that it is because she has moved from [facility] up to [place] and has not established with a new PCP yet. Her previous PCP Dr. Miller in [facility] would not refill blood pressure medications without an office visit. She believes she was taking metoprolol but is not sure. Past Medical History: Hypertension Past Surgical History: Reviewed in chart Social History: Reviewed in chart Family History: Reviewed and noncontributory for presenting illness Allergies: Reviewed, see documented allergy list. REVIEW OF SYSTEMS: CONSTITUTIONAL : No fever chills diaphoresis No recent illness EENT: No vision changes No congestion No sore throat CARDIOVASCULAR: No chest pain No palpitations RESPIRATORY: No shortness of breath No cough No difficulty breathing GASTROINTESTINAL: abdominal pain nausea Constipation No vomiting No diarrhea GENITOURINARY: No dysuria No hematuria No difficulty urinating MUSCULOSKELETAL: No back pain No leg pain No arm pain SKIN: No rashes No lesions LYMPHATIC: No swollen, enlarged glands. NEUROLOGICAL: No lightheadedness No headache No weakness No paresthesias PSYCHIATRIC: No anxiety No depression PHYSICAL EXAMINATION: Vital signs reviewed, nursing noted reviewed. GENERAL: Appears uncomfortable, obese and in no acute distress. HEAD: Atraumatic, normocephalic. EYES: Eyes appear normal, extraocular movements intact, sclera anicteric, conjunctiva are normal. ENT: nares patent, oropharynx clear without exudates. Moist mucous membranes. NECK: Normal range of motion, supple without lymphadenopathy LUNGS: Breath sounds clear to auscultation bilaterally and equal. No wheezes rales or rhonchi. HEART: Tachycardic rate and regular rhythm without murmurs ABDOMEN: Soft, left lower quadrant tenderness and to a lesser extent left upper quadrant tenderness, No rebound, guarding, or rigidity. No masses appreciated. EXTREMITIES: Nontender, good range of motion, no pitting or edema. NEUROLOGICAL: No focal neurological deficits. Moves all extremities spontaneously Motor and sensory grossly intact on exam. PSYCH: Normal mood, normal affect. SKIN: Warm, Dry, normal turgor, no rashes or lesions noted on exposed skin - Related Data Allergies/Adverse Reactions: Penicillins Allergy (Severe, Verified 11/01/18 13:02) Anaphylaxis tramadol [Tramadol] Allergy (Verified 11/01/18 13:02) Past Medical History - Social History Smoking Status: Never Smoker Family History: Reviewed & Not Pertinent - Past Medical History Cardiac Medical History: Reports: Hx Hypertension Denies: Hx Coronary Artery Disease, Hx Heart Attack Pulmonary Medical History: Reports: Hx Bronchitis Denies: Hx Asthma, Hx COPD, Hx Pneumonia Neurological Medical History: Denies: Hx Cerebrovascular Accident, Hx Seizures Renal/ Medical History: Reports: Hx Kidney Stones. Denies: Hx Peritoneal Dialysis Musculoskeletal Medical History: Denies Hx Arthritis Past Surgical History: Reports: Hx Cholecystectomy, Hx Hysterectomy, Hx Mastectomy - partial hysterectomy, Hx Orthopedic Surgery - TMJ - Immunizations Immunizations up to date: Yes Hx Diphtheria, Pertussis, Tetanus Vaccination: Yes Hx Pneumococcal Vaccination: 10/04/14 Physical Exam - Vital signs Vitals: Temp Pulse Resp BP Pulse Ox 97.9 F 108 H 18 183/110 H 98 02/11/19 06:28 02/11/19 06:28 02/11/19 06:28 02/11/19 06:28 02/11/19 06:28 Course - Re-evaluation Re-evalutation: 02/11/19 07:09 Vitals reviewed. Nursing notes reviewed. Patient is tachycardic and hype rtensive and appears uncomfortable. She was given IV pain medication for symptomatic management. She has been noncompliant with her home BP medicine and her blood pressure will be monitored closely. Patient placed on telemetry monitoring. 02/11/19 10:42 Patient's BP currently 165/98 after pain control. She does have a mild leukocytosis and diverticulitis on CT scan. She has remained afebrile and has a normal lactic acid. She is not septic. Patient was started on Cipro and Flagyl for her acute diverticulitis. She did require repeat dosing of pain medicine in the ER but currently states she is feeling improved. She was told to follow with primary care in the next few days for reevaluation and to return to the ED for new or worsening concerns. She is stable at time of discharge. Laboratory 02/11/19 02/11/19 02/11/19 07:54 08:27 08:27 WBC 14.9 H RBC 4.65 Hgb 13.9 Hct 41.6 MCV 90 MCH 29.9 MCHC 33.4 RDW 13.8 Plt Count 266 Seg Neutrophils % 77.8 Lymphocytes % 13.2 Monocytes % 6.4 Eosinophils % 2.0 Basophils % 0.6 Absolute Neutrophils 11.6 H Absolute Lymphocytes 2.0 Absolute Monocytes 1.0 Absolute Eosinophils 0.3 Absolute Basophils 0.1 Sodium 141.3 Potassium 3.4 L Chloride 107 Carbon Dioxide 27 Anion Gap 7 BUN 14 Creatinine 0.58 Est GFR ( Amer) > 60 Est GFR (Non-Af Amer) > 60 Glucose 98 Lactic Acid 0.8 Calcium 9.0 Total Bilirubin 0.9 Direct Bilirubin 0.2 Neonat Total Bilirubin Not Reportable Neonat Direct Bilirubin Not Reportable Neonat Indirect Bili Not Reportable AST 11 L ALT 31 Alkaline Phosphatase 59 Total Protein 6.3 Albumin 3.6 Lipase 44.5 Abdomen/Pelvis CT 02/11/19 07:05 IMPRESSION: Distal descending colon diverticulitis - Vital Signs Vital signs: Temp Pulse Resp BP Pulse Ox 97.9 F 108 H 18 183/110 H 98 02/11/19 06:28 02/11/19 06:28 02/11/19 06:28 02/11/19 06:28 02/11/19 06:28 - Laboratory Result Diagrams: 02/11/19 07:54 02/11/19 08:27 Laboratory results interpreted by me: 02/11/19 02/11/19 07:54 08:27 WBC 14.9 H Absolute Neutrophils 11.6 H Potassium 3.4 L AST 11 L Discharge - Discharge Clinical Impression: Diverticulitis Condition: Stable Disposition: HOME, SELF-CARE Instructions: Diverticulitis ([facility]) Additional Instructions: Please return to the emergency department if you have any worsening, or concern of your symptoms. Please return to the emergency department if you develop chest pain, difficulty breathing, severe abdominal pain, or ongoing vomiting. Please follow-up with your primary care physician in 2-3 days and any other recommended physicians. If prescribed, take all medications as directed. If you have any questions or concerns do not hesitate to return the emergency department for evaluation. [] Prescriptions: Ciprofloxacin HCl [Cipro 500 mg Tablet] 500 mg PO BID #20 tablet Metronidazole [Flagyl 500 mg Tablet] 500 mg PO BID #20 tablet Referrals: [facility] [Provider Group] - Follow up in 3-5 days [facility] [Provider Group] - Follow up in 3-5 days
[2019-02-11 08:06] LABS: ABSOLUTE BASOPHILS # (AUTO) 0.1 10^3/uL (0.0-0.2); ABSOLUTE EOSINOPHILS # (AUTO) 0.3 10^3/uL (0.0-0.6); ABSOLUTE NEUT (AUTO) 11.6 10^3/uL (1.7-8.2); BASOPHILS % (AUTO) 0.6 % (0-2); HEMATOCRIT 41.6 % (36.0-47.0); HEMOGLOBIN 13.9 g/dL (12.0-15.5); LYMPHOCYTES % (AUTO) 13.2 % (13-45); MEAN CORPUSCULAR HEMOGLOBIN 29.9 pg (27.0-33.4); MEAN CORPUSCULAR HGB CONC 33.4 g/dL (32.0-36.0); MEAN CORPUSCULAR VOLUME 90 fl (80-97); MONOCYTES % (AUTO) 6.4 % (3-13); PLATELET COUNT 266 10^3/uL (150-450); RED BLOOD COUNT 4.65 10^6/uL (3.72-5.28); RED CELL DISTRIBUTION WIDTH 13.8 % (11.5-14.0); SEGMENTED NEUTROPHILS % (AUTO) 77.8 % (42-78); TOTAL CELLS COUNTED % (AUTO) 100 %; WHITE BLOOD COUNT 14.9 10^3/uL (4.0-10.5)
[2019-02-11 08:58] LABS: ALANINE AMINOTRANSFERASE 31 U/L (9-52); ALBUMIN 3.6 g/dL (3.5-5.0); ALKALINE PHOSPHATASE 59 U/L (38-126); ANION GAP 7 (5-19); ASPARTATE AMINO TRANSFERASE 11 U/L (14-36); BILIRUBIN,DIRECT 0.2 mg/dL (0.0-0.4); BILIRUBIN,TOTAL 0.9 mg/dL (0.2-1.3); BLOOD UREA NITROGEN 14 mg/dL (7-20); CARBON DIOXIDE 27 mmol/L (22-30); CHLORIDE 107 mmol/L (98-107); GLUCOSE 98 mg/dL (75-110); LIPASE 44.5 U/L (23-300); POTASSIUM 3.4 mmol/L (3.6-5.0); SODIUM 141.3 mmol/L (137-145); TOTAL PROTEIN 6.3 g/dL (6.3-8.2)
--- NOTE | 2019-02-11 10:09 | RADIOLOGY REPORT (SQ) ---
EXAM DESCRIPTION: CT ABD/PELVIS WITH IV ONLY COMPLETED DATE/TIME: 02/11/2019 9:36 am REASON FOR STUDY: LLQ pain COMPARISON: CT abdomen pelvis 02/25/2016 TECHNIQUE: CT scan of the abdomen and pelvis performed using helical scanning technique with dynamic intravenous contrast injection. No oral contrast. Images reviewed with lung, soft tissue, and bone windows. Reconstructed coronal and sagittal MPR images reviewed. Delayed images for evaluation of the urinary system also acquired. All images stored on PACS. All CT scanners at this facility use dose modulation, iterative reconstruction, and/or weight based d osing when appropriate to reduce radiation dose to as low as reasonably achievable (ALARA). [facility]: Dose Right [facility]: CareDose [facility]: Dose Right [facility]: Teradose 4D [facility]: Mobile2Win [place] CONTRAST TYPE AND DOSE: contrast/concentration: Isovue 350.00 mg/ml; Total Contrast Delivered: 100.0 ml; Total Saline Delivered: 41.5 ml RENAL FUNCTION: Creatinine 0.58 RADIATION DOSE: CT Rad equipment meets quality standard of care and radiation dose reduction techniq ues were employed. CTDIvol: 20.1 - 21.0 mGy. DLP: 2500 mGy-cm.. LIMITATIONS: None. FINDINGS: There is distal descending colon diverticulitis, with colon wall thickening, luminal narro wing, and surrounding inflammation in the pericolic fat. No abscess. Small amount of cul-de-sac [place] e fluid. These findings are best shown on axial images 68-84, coronal images 25-39. Remainder of the gastrointestinal tract is otherwise unremarkable. No CT findings of bowel obstructi on. No free intraperitoneal air. LOWER CHEST: Mild cardiomegaly. No nodules or infiltrates. LIVER: Normal size. No masses. No dilated ducts. SPLEEN: Normal size. No focal lesions. PANCREAS: No masses. No significant calcifications. No adjacent inflammation or peripancreatic fluid collections. Pancreatic duct not dilated. GALLBLADDER: Surgically absent ADRENAL GLANDS: No significant masses or asymmetry. RIGHT KIDNEY AND URETER: No solid masses. No significant calcifications. No hydronephrosis or hyd roureter. LEFT KIDNEY AND URETER: No solid masses. 2.6 cm left midpole renal cortical cyst. No significant ca lcifications. No hydronephrosis or hydroureter. AORTA AND VESSELS: No aneurysm. No dissection. Renal arteries, SMA, celiac without stenosis. RETROPERITONEUM: No retroperitoneal adenopathy, hemorrhage or masses. BOWEL AND PERITONEAL CAVITY: As above APPENDIX: Normal. PELVIS: Small amount of pelvic cul-de-sac fluid. Post hysterectomy. Normal size ovaries. ABDOMINAL WALL: No masses. No hernias. BONES: No significant or acute findings. OTHER: No other significant finding. IMPRESSION: Distal descending colon diverticulitis TECHNICAL DOCUMENTATION: JOB ID: [id number] Quality ID # [id number]: Final reports with documentation of one or more dose reduction techniques (e.g., Au tomated exposure control, adjustment of the mA and/or kV according to patient size, use of iterative reconstruction technique) 2010 [employer]- All Rights Reserved Reading location - IP/workstation name: [email or web address]
[2019-02-11] MEDS ORDERED: CIPROFLOXACIN HCL 500 MG TABLET PO ONE (10:25)
[2019-02-11] MEDS ORDERED: KETOROLAC TROMETHAMINE INJ/PF 30 MG/1 ML SDV IV ONE (10:25)
[2019-02-11] MEDS ORDERED: METRONIDAZOLE 500 MG TABLET PO ONE (10:25)
[2019-02-11 10:53] VITALS: BP 174/105
== END 2019-02-11 10:53 | disposition home or self-care (01) ==
LOC: ER 06:27
DX: K57.32 Diverticulitis of large intestine without perforation or abscess without bleeding (principal); K59.00 Constipation, unspecified; R10.32 Left lower quadrant pain; R10.12 Left upper quadrant pain; R11.0 Nausea; R61 Generalized hyperhidrosis; R00.0 Tachycardia, unspecified; D72.829 Elevated white blood cell count, unspecified; R68.83 Chills (without fever); I10 Essential (primary) hypertension; T50.906A Underdosing of unspecified drugs, medicaments and biological substances, initial encounter; Z91.128 Patient's intentional underdosing of medication regimen for other reason; Z91.14 Patient's other noncompliance with medication regimen; Z87.892 Personal history of anaphylaxis; Z88.0 Allergy status to penicillin; Z88.5 Allergy status to narcotic agent
CPT/HCPCS: 96376; 99284; 96361; 96374; 96375; 36415; 87040; 83690; 85025; 80053; 83605; 74177; J1885; J2270; J2405; J7030

== ENCOUNTER 2020-07-14 09:54 | Emergency (ER) | payer SELFPAY ==
[2020-07-14 10:11] VITALS: BP 161/95
[2020-07-14] MEDS ORDERED: OXYCODONE-ACETAMINOPHEN 5-325 MG TABLET PO ONE (10:25)
--- NOTE | 2020-07-14 10:59 | RADIOLOGY REPORT (SQ) ---
EXAM DESCRIPTION: KNEE LEFT 4 VIEW IMAGES COMPLETED DATE/TIME: 07/14/2020 10:49 am REASON FOR STUDY: fall COMPARISON: None. NUMBER OF VIEWS: Four views. TECHNIQUE: AP, lateral, and both oblique radiographic images acquired of the left knee. LIMITATIONS: None. FINDINGS: MINERALIZATION: Normal. BONES: No acute fracture or dislocation. No worrisome bone lesions. JOINT: No effusion. SOFT TISSUES: No soft tissue swelling. No radio-opaque foreign body. OTHER: No other significant finding. IMPRESSION: NEGATIVE STUDY OF THE LEFT KNEE. NO RADIOGRAPHIC EVIDENCE OF ACUTE INJURY. TECHNICAL DOCUMENTATION: JOB ID: [id number] 2010 [employer]- All Rights Reserved Reading location - IP/workstation name: [email or web address]
--- NOTE | 2020-07-14 11:24 | ER Document Report ---
HPI - HPI Time Seen by Provider: 07/14/20 10:21 Pain Level: 4 Notes: 45-year-old female patient presenting to the emergency department with complaints of left knee pain. Patient reports last night she was running and fell. She states that is painful to bear weight. - ROS Systems Reviewed and Negative: Yes All other systems reviewed and negative - REPRODUCTIVE Reproductive: DENIES: : - MUSCULOSKELETAL Musculoskeletal: REPORTS: Extremity pain Past Medical History - General Information source: Patient - Social History Smoking Status: Current Every Day Smoker Chew tobacco use (# tins/day): No Frequency of alcohol use: None Drug Abuse: None Family History: Reviewed & Not Pertinent Patient has homicidal ideation: No - Past Medical History Cardiac Medical History: Reports: Hx Hypertension Denies: Hx Coronary Artery Disease, Hx Heart Attack Pulmonary Medical History: Reports: Hx Bronchitis Denies: Hx Asthma, Hx COPD, Hx Pneumonia Neurological Medical History: Denies: Hx Cerebrovascular Accident, Hx Seizures Renal/ Medical History: Reports: Hx Kidney Stones. Denies: Hx Peritoneal Dialysis Musculoskeletal Medical History: Denies Hx Arthritis Past Surgical History: Reports: Hx Cholecystectomy, Hx Hysterectomy, Hx Mastectomy - partial hysterectomy, Hx Orthopedic Surgery - TMJ - Immunizations Immunizations up to date: Yes Hx Diphtheria, Pertussis, Tetanus Vaccination: Yes Hx Pneumococcal Vaccination: 10/04/14 Vertical Provider Document - CONSTITUTIONAL Notes: PHYSICAL EXAMINATION: GENERAL: Well-appearing, well-nourished and in no acute distress. HEAD: Atraumatic, normocephalic. EYES: Pupils equal round extraocular movements intact, conjunctiva are normal. ENT: Nares patent NECK: Normal range of motion LUNGS: No respiratory distress Musculoskeletal: Limited range of motion at left knee. Ecchymosis and swelling noted to anterior surface, no crepitus or deformity. Strong popliteal and dorsalis pedis pulse. Normal motor and sensation distally. NEUROLOGICAL: Normal speech. PSYCH: Normal mood, normal affect. SKIN: Warm, Dry, normal turgor, no rashes or lesions noted. - INFECTION CONTROL TRAVEL OUTSIDE OF THE [place] IN LAST 30 DAYS: No Course - Re-evaluation Re-evalutation: Knee X-Ray 07/14/20 10:25 IMPRESSION: NEGATIVE STUDY OF THE LEFT KNEE. NO RADIOGRAPHIC EVIDENCE OF ACUTE INJURY. - Vital Signs Vital signs: Temp Pulse Resp BP Pulse Ox 98.4 F 106 H 20 161/95 H 96 07/14/20 10:22 07/14/20 10:06 07/14/20 10:06 07/14/20 10:06 07/14/20 10:06 Procedures - Immobilization Left knee Pre-Proc Neuro Vasc Exam: Normal Immobilizer type: Crutches, Knee immobilizer Performed by: PCT Post-Proc Neuro Vasc Exam: Normal Discharge - Discharge Clinical Impression: Knee sprain Qualifiers: Encounter type: initial encounter Involved ligament of knee: unspecified ligament Laterality: left Qualified Code(s): S83.92XA - Sprain of unspecified site of left knee, initial encounter Condition: Stable Disposition: HOME, SELF-CARE Additional Instructions: Sprained Knee Your sprained knee results from a stretching or tearing of the ligaments which support the joint. This often results from a bending stress -- such as a twisting fall while skiing or a "clip" while playing football. The ligaments will require time and protection to heal adequately. A knee sprain can be quite serious, and should be taken seriously. The usual treatment is splinting of the knee, ice packs, and elevation. You shouldn't walk on the leg if weightbearing is painful. Unless the sprain is obviously a minor one, follow-up exam is very important. The degree of ligament damage often cannot be fully assessed at first due to muscle spasm and pain. Your treatment plan may change based on the physician's findings during your follow-up examination. Call the doctor at once if there is severe swelling, increasing pain, numbness, or other alarming symptoms. Ice & Elevation Apply ice packs frequently against the painful area. Many different [place] edules are recommended, such as "20 minutes on, 20 minutes off" or "one hour ice, two hours rest." If you need to work, you may need to go longer between ice treatments. You should plan to have the area ice packed AT LEAST one-fourth of the time. The ice should be applied over the wrap, tape, or splint, or over a layer of cloth -- not directly against the skin. Some ice bags have a built-in cloth and can be put directly on the skin. Your injured part should be elevated as much as possible over the next 48 hours. Try to keep the injury above the level of the heart. Avoid use of the injured area. Elevation and rest will decrease the swelling. Your x-ray was negative for any fracture or dislocation. Please take ibuprofen 600 mg every 6 hours for pain and inflammation. Use the narcotic pain medication for severe pain only. Ice and elevate as outlined above wear the knee immobilizer. If your symptoms do not improve over the next 1-2 weeks please follow-up with either your primary care provider or the orthopedic provider that I have outlined on your paperwork. Prescriptions: Hydrocodone/Acetaminophen [[place] 5-325 mg Tablet] 1 tab PO Q6HP PRN #8 tablet PRN Reason: Lisinopril 20 mg PO DAILY #90 tablet Forms: Return to Work Referrals: DEE EARL DO [ACTIVE STAFF] - Follow up as needed
== END 2020-07-14 11:30 | disposition home or self-care (01) ==
LOC: ER 09:54
DX: S83.92XA Sprain of unspecified site of left knee, initial encounter (principal); W19.XXXA Unspecified fall, initial encounter; Y93.02 Activity, running; I10 Essential (primary) hypertension; F17.200 Nicotine dependence, unspecified, uncomplicated
CPT/HCPCS: 99284